=== PATIENT | male | born 1955 | race Caucasian/White ===

== ENCOUNTER → 2020-05-11 | Outpatient (CLI) | payer MEDICARE ==
[~2020-05-11] MED LIST: ASPI81TA59 PO; METF-638 PO; SIMV20TA18 PO; TAMS0.4C97 PO
== END ==
LOC: LAB 07:10
PROVIDERS: ATTEND Nurse Anesthetist, Certified Registered
DX: Z01.812 Encounter for preprocedural laboratory examination (principal); D17.79 Benign lipomatous neoplasm of other sites; Z20.828 Contact with and (suspected) exposure to other viral communicable diseases
CPT/HCPCS: U0003

== ENCOUNTER → 2020-05-15 | Day surgery (SDC) | payer MEDICARE ==
[~2020-05-15] MED LIST changes: +BUPIVACAINE-EPI 0.25%-1:200000 MPF 30 ML VIAL. ONE
--- NOTE | 2020-05-15 12:03 | PDOC4 ---
Operative Report DATE May 152020 at 1201 Preop Diagnosis Right shoulder mass Post-op Diagnosis Same Operation Performed Excision of right shoulder mass Procedure of excision of mass was explained to the patient detail was benefits were also discussed including bleeding infection alternatives to this procedure also discussed with the patient who seemed to understand and gave a verbal written consent to have the procedure performed. Patient was taken to the minors room placed in the left lateral decubitus position his shoulder was prepped and draped usual sterile fashion using ChloraPrep. An area over the mass was injected with quarter percent Marcaine with epinephrine incision was made with 15 blade scalpel and the mass was sharply excised which appeared to be a lipoma. The mass size was 6 x 6 cm. The incision size was 7 cm in length. The wound was then closed in 2 layers the deep layer of running 3-0 Vicryl and the skin was reapproximated 4-0 subcuticular Monocryl Mastisol Steri-Strips and island dressing were applied. Patient tolerated procedure well was discharged home in stable condition all sponge instrument needle counts listed as correct estimated blood loss 5 mL Surgeon Monty ANESTHESIA PROPOSED: LOCAL Blood Loss 5 mL Specimen Lipoma left shoulder Complications None MUNIRA AGUILERA MD May 15, 2020 12:03
--- NOTE | 2020-05-15 12:04 | DISCH ---
DISCHARGE INSTRUCTIONS-DC Condition on Discharge Condition on Discharge: Stable Activity after Discharge Activity Instructions for Disc: No restrictions Diet after Discharge Diet after Discharge: Regular Wound/Incision Care Other wound/incision instructi: Jennifer shower in 24 hours Contacting the DRDax after DC Call your doctor for: If your condition worsens Follow-Up Follow up with: Dr. Aguilera in 2-week MUNIRA AGUILERA MD May 15, 2020 12:04
[2020-05-15 12:17] VITALS: BP 145/85
--- NOTE | 2020-05-18 18:12 | PATHOLOGY ---
[facility] Accession Number: [id number] . 01 Material submitted: . shoulder - R SHOULDER LIPOMA. Modifiers: right . 02 Diagnosis: Segment of fibroadipose tissue, right shoulder lesion excision: - Lipoma. (JPM:landscape crew member; 05/18/2020) MBR 05/18/2020 1535 Local . 02 Comment: There is no evidence of malignancy. (JPM:ivet; 05/18/2020) . 02 Electronically signed: . Cristhian Padilla MD, Pathologist NPI- [id number] . 01 Gross description: . The specimen is received in formalin, labeled "Devon Wynn, R shoulder lipoma". Received is a segment of yellow-reid lobulated tissue measuring 10.2 x 8.8 x 3.1 cm in greatest dimensions. Sectioning reveals bright yellow cut surfaces with no grossly distinct nodules or lesions. The specimen is submitted representatively in cassette A1 through A3. (CAA; 05/17/2020) QAC/QAC 05/17/2020 1746 Local . 02 Pathologist provided ICD-10: D17.21 . 02 CPT . 301202 Specimen Comment: A courtesy copy of this report has been sent to [phone], [phone] Specimen Comment: [id number] Specimen Comment: Report sent to / DR KAMARA Performed at: 01 [facility] [address], [place] [id number] MD Fidel Mathew MD Phone: [phone] Performed at: 02 [facility] [address], [place] [id number] MD Cristhian Padilla MD Phone: [phone]
== END | disposition home or self-care (01) ==
LOC: SURG 10:24
PROVIDERS: ATTEND Surgery
DX: R22.32 Localized swelling, mass and lump, left upper limb (principal); D17.21 Benign lipomatous neoplasm of skin and subcutaneous tissue of right arm; Z79.899 Other long term (current) drug therapy; Z79.84 Long term (current) use of oral hypoglycemic drugs
CPT/HCPCS: 23071; 88304; J3490